=== PATIENT | female | born 1960 | race Caucasian/White ===

== ENCOUNTER 2016-08-23 19:15 | Emergency (ER) | payer BC ==
[2016-08-23 19:42] VITALS: BP 134/68
--- NOTE | 2016-08-23 19:43 | EDM.PDOC ---
ED HPI GENERAL MEDICAL PROBLEM - General Chief Complaint: Abdominal Pain Stated Complaint: PAIN IN LOWER LEFT SIDE Time Seen by Provider: 08/23/16 19:43 - History of Present Illness INITIAL COMMENTS - FREE TEXT/NARRATIVE: 56-year-old female presents to emergency room with abdominal pain. This pain started around 7:00 this morning just has progressively gotten worse through the course the day the patient does develop some nausea this afternoon the pain has localized more to the right lower quadrant. The patient has a history of celiac disease. Patient's only other abdominal condition or surgeries hysterectomy. RLQ abdomen/groin Pain Score (Numeric/FACES): 5 - Related Data Allergies Allergy/AdvReac Type Severity Reaction Status Date / Time No Known Allergies Allergy Verified 08/23/16 19:42 Home Meds: Home Meds B6-Niacinamide 2 tab PO DAILY 08/23/16 [History] Cataplex F 4 tab PO DAILY 08/23/16 [History] Cholecalciferol (Vitamin D3) [Vitamin D3] 4,000 unit PO DAILY 08/23/16 [History] Clinical Gardner 3 Epa/Dha 1 tab PO DAILY 08/23/16 [History] Drenamin 4 tab PO DAILY 08/23/16 [History] Glutathione [Glutathione-l] 1 gm PO DAILY 08/23/16 [History] Magnesium l-Lactate [Magbid ER] 3 tab PO DAILY 08/23/16 [History] Balaji Detox 2 1 tab PO DAILY 08/23/16 [History] Multivitamins [Tab-A-Figueroa] 1 tab PO DAILY 08/23/16 [History] Gardner-3 Fatty Acids [Gardner-3] 100 mg PO DAILY 08/23/16 [History] Omeprazole 20 mg PO BIDAC 08/23/16 [History] Pituitrophin Pmc 1 tab PO DAILY 08/23/16 [History] Symplex F 5 tab PO DAILY 08/23/16 [History] Thytrophin Pmg 2 tab PO DAILY 08/23/16 [History] Vitamin K2 40 mcg PO DAILY 08/23/16 [History] ED ROS GENERAL - Review of Systems Review Of Systems: See Below Constitutional: Reports: No Symptoms HEENT: Reports: No Symptoms Respiratory: Reports: No Symptoms Cardiovascular: Reports: No Symptoms Endocrine: Reports: No Symptoms GI/Abdominal: Reports: Abdominal Pain, Diarrhea (She had an episode of a very loose stool a couple of days ago otherwise no problems), Nausea (This started several hours ago). Denies: Vomiting : Reports: No Symptoms Musculoskeletal: Reports: No Symptoms Skin: Reports: No Symptoms Neurological: Reports: No Symptoms ED EXAM, GI/ABD - Physical Exam Exam: See Below Exam Limited By: No Limitations General Appearance: Alert, No Apparent Distress Head: Atraumatic, Normocephalic Neck: Normal Inspection, Supple, Non-Tender, Full Range of Motion. No: Lymphadenopathy (L), Lymphadenopathy (R) Respiratory/Chest: No Respiratory Distress, Lungs Clear, Normal Breath Sounds Cardiovascular: Regular Rate, Rhythm, No Edema, No Murmur GI/Abdominal: Normal Bowel Sounds, Other (The patient has significant right lower quadrant discomfort with palpation with palpation of the left upper and lower quadrants she has radiating pain to the right lower quadrant she has rebound tenderness with pressing on the left radiating to the right tapping on her right heel causes discomfort in the right lower quadrant no significant suprapubic discomfort) Back Exam: Normal Inspection. No: CVA Tenderness (L), CVA Tenderness (R) Extremities: Normal Inspection, No Pedal Edema Course - Vital Signs Last Recorded V/S: Last Vital Signs Temp 36.6 C 08/23/16 19:37 Pulse 53 L 08/23/16 19:37 Resp 18 08/23/16 19:37 BP 134/68 08/23/16 19:37 Pulse Ox 96 08/23/16 19:37 - Orders/Labs/Meds Orders: Active Orders 24 hr Category Date Time Status Abdomen Pelvis w Cont [CT] Stat Exams 08/23/16 19:55 Taken Sodium Chloride 0.9% [Saline Flush] Med 08/23/16 21:42 Active 10 ml FLUSH ONETIME PRN Medication Orders Sodium Chloride (Saline Flush) 10 ml FLUSH ONETIME PRN PRN Reason: IV FLUSH Last Admin: 08/23/16 21:57 Dose: 10 ml Labs: Laboratory Tests 08/23/16 08/23/16 08/23/16 Range/Units 20:10 20:10 20:10 WBC 7.08 (3.98-10.04) K/mm3 RBC 4.67 (3.98-5.22) M/mm3 Hgb 13.2 (11.2-15.7) gm/L Hct 40.0 (34.1-44.9) % MCV 85.7 (79.4-94.8) fl MCH 28.3 (25.6-32.2) pg MCHC 33.0 (32.2-35.5) g/dl RDW Std Deviation 39.1 (36.4-46.3) fL Plt Count 199 (182-369) K/mm3 MPV 11.0 (9.4-12.3) fl Neutrophils % (Manual) 45 (40-60) % Band Neutrophils % 1 (0-10) % Lymphocytes % (Manual) 47 H (20-40) % Atypical Lymphs % 0 % Monocytes % (Manual) 6 (2-10) % Eosinophils % (Manual) 1 (0.7-5.8) % Basophils % (Manual) 0 L (0.1-1.2) Platelet Estimate Adequate Plt Morphology Comment Normal RBC Morph Comment Normal Sodium 144 (136-145) mEq/L Potassium 3.9 (3.5-5.1) mEq/L Chloride 106 (98-107) mEq/L Carbon Dioxide 27 (21-32) mEq/L Anion Gap 14.9 (5-15) BUN 15 (7-18) mg/dL Creatinine 0.9 (0.55-1.02) mg/dL Est Cr Clr Drug Dosing 66.90 mL/min Estimated GFR (MDRD) > 60 (>60) mL/min BUN/Creatinine Ratio 16.7 (14-18) Glucose 88 (74-106) mg/dL Calcium 9.3 (8.5-10.1) mg/dL Total Bilirubin 0.5 (0.2-1.0) mg/dL AST 23 (15-37) U/L ALT 36 (14-59) U/L Alkaline Phosphatase 126 H (46-116) U/L Total Protein 7.8 (6.4-8.2) g/dl Albumin 4.1 (3.4-5.0) g/dl Globulin 3.7 gm/dL Albumin/Globulin Ratio 1.1 (1-2) Urine Color Yellow (Yellow) Urine Appearance Slt cloudy H (Clear) Urine pH 7.0 (5.0-8.0) Ur Specific [place] 1.015 (1.005-1.030) Urine Protein 1+ H (Negative) Urine Glucose (UA) Negative (Negative) Urine Ketones Negative (Negative) Urine Occult Blood Negative (Negative) Urine Nitrite Negative (Negative) Urine Bilirubin Negative (Negative) Urine Urobilinogen 0.2 (0.2-1.0) Ur Leukocyte Esterase 1+ H (Negative) Urine RBC 0-5 (0-5) /hpf Urine WBC 10-20 H (0-5) /hpf Ur Epithelial Cells Not Reportable Ur Squamous Epith Cells 30-40 H (0-5) /hpf Urine Bacteria Many H (FEW) /hpf Urine Mucus Not seen (FEW) /hpf Meds: Medications Generic Name Dose Route Start Last Admin Trade Name Freq PRN Reason Stop Dose Admin Sodium Chloride 10 ml 08/23/16 21:42 08/23/16 21:57 Saline Flush FLUSH 10 ml ONETIME PRN Administration IV FLUSH Discontinued Medications Generic Name Dose Route Start Last Admin Trade Name Freq PRN Reason Stop Dose Admin Diatrizoate Meglum/Diatrizoate Sod 90 ml 08/23/16 21:42 08/23/16 21:57 Gastrografin 37% PO 08/23/16 21:43 90 ml ONETIME ONE Administration Lactated Ringer's 500 mls @ 999 mls/hr 08/23/16 19:54 08/23/16 20:20 Ringers, Lactated IV 08/23/16 20:24 999 mls/hr .BOLUS ONE Administration Iopamidol 125 ml 08/23/16 21:42 08/23/16 21:53 Isovue-300 (61%) IVPUSH 08/23/16 21:43 125 ml ONETIME ONE Administration Ondansetron HCl 4 mg 08/23/16 19:54 08/23/16 20:21 Zofran Odt PO 08/23/16 19:55 4 mg ONETIME ONE Administration - Re-Assessments/Exams Free Text/Narrative Re-Assessment/Exam: 08/23/16 22:59 Patient initially evaluated for right lower quadrant discomfort she had what seemed like a little bit of rebound discomfort labs and CT ordered after drinking the contrast her pain seemed to improve somewhat CT is unrevealing other than a 3 mm nodule in the base of the right lung. The appendix appears to be well visualized no evidence of acute appendicitis no other pathology identified. CBC is unrevealing chemistries normal urinalysis does not suggest an infectious process however is contaminated. Repeat examination at this time shows much improved abdominal discomfort she has a little bit of discomfort this is moved a little more laterally into the lowermost lateral ribs. Departure - Departure Time of Disposition: 23:00 Disposition: Home, Self-Care 01 Clinical Impression: Abdominal pain of unknown etiology - Discharge Information Forms: ED Department Discharge Additional Instructions: Return to the emergency room with any questions or problems or worsening symptoms. Return to the emergency room in 24 hours if not obviously improving Clear liquid diet for the next 12 hours then slowly advance as tolerated it is really important to push the fluids. Follow-up in the Hospital clinic early this next week for recheck. Discuss any remaining symptoms that you are having and discuss the nodule seen in your right lung base on the CT scan for further observation. - My Orders Last 24 Hours: My Active Orders 08/23/16 19:55 Abdomen Pelvis w Cont [CT] Stat 08/23/16 21:42 Sodium Chloride 0.9% [Saline Flush] 10 ml FLUSH ONETIME PRN - Assessment/Plan Last 24 Hours: My Active Orders 08/23/16 19:55 Abdomen Pelvis w Cont [CT] Stat 08/23/16 21:42 Sodium Chloride 0.9% [Saline Flush] 10 ml FLUSH ONETIME PRN
[2016-08-23] MEDS ORDERED: Ondansetron 4 MG Tab.DIS PO ONE (19:54)
[2016-08-23] MEDS ORDERED: Lactated Ringers 500 ML IV ONE (19:54)
[2016-08-23] MEDS ORDERED: Iopamidol 612 MG/ML 150 ML Bottle IVPUSH ONE (21:42)
[2016-08-23] MEDS ORDERED: Diatrizoate Meglumine/Diatrizoate Sodium 37% 120 ML Bottle PO ONE (21:42)
[2016-08-23] MEDS ORDERED: Sodium Chloride 0.9% 10 ML Syringe FLUSH PRN (21:42)
--- NOTE | 2016-08-26 14:39 | CT ---
CT abdomen and pelvis Technique: Multiple axial sections were obtained from above the dome of the diaphragm inferiorly through the pubic symphysis. Intravenous and oral contrast was utilized. Delayed images were obtained to the bladder. Comparison: No previous abdominal imaging. Findings: Visualized lung bases show nothing acute. Liver shows no focal parenchymal abnormality. Spleen appears within normal limits. Adrenal glands show no nodule. Pancreas is within normal limits. Kidneys show symmetric contrast enhancement. Cystic areas are seen within the left kidney believed to represent parapelvic cysts No discrete hydronephrosis or mass is seen. Delayed images show contrast within the bladder. Aorta shows no aneurysmal dilatation. No retroperitoneal adenopathy or mesenteric abnormalities are seen. No pelvic mass or adenopathy is seen. No free fluid or inflammatory change is seen. No bowel dilatation is seen. No calcified gallstones are seen. Bone window settings were reviewed which appear within normal limits for the patient's age. Incidental fat-containing umbilical hernia and small adjacent fat-containing periumbilical hernia is seen. Impression: 1. Incidental findings as noted above. Nothing acute is appreciated on CT study of the abdomen and pelvis. Diagnostic code #2 Agree with preliminary report issued by [facility] ([facility] preliminary report dictated on 08/23/16, 11:32 PM Central Time)
== END 2016-08-23 23:16 | disposition home or self-care (01) ==
LOC: JD.ED 19:15
DX: R10.31 Right lower quadrant pain (principal); Z79.899 Other long term (current) drug therapy
CPT/HCPCS: 36415; 74177; 80053; 81001; 85025; 96360; 99284; A9270; J7050; J7120; Q9963; Q9967